=== PATIENT | male | born 1940 | race Caucasian/White ===

== ENCOUNTER 2019-06-13 10:33 | Emergency (ER) | payer MEDICARE, BC ==
[~2019-06-13 10:33] MED LIST: Iopamidol 370 76% 150 ML VIAL FS ONE
[2019-06-13 10:53] LABS: #Basophils 0.1 thou/uL (0.0-0.2); #Eosinphils 0.2 thou/uL (0.0-0.7); #Lymphocytes 2.2 thou/uL (1.20-3.40); #Monocytes 0.6 thou/uL (0.11-0.59); #Neutrophils 4.8 thou/uL (1.40-6.50); %Basophils 0.8 % (0.0-1.0); %Eosinophils 2.1 % (0.0-10.0); %Lymphocytes 28.2 % (21.0-51.0); %Monocytes 7.3 % (0.0-10.0); %Neutrophils 61.7 % (42.0-75.0); Hemoglobin 15.5 g/dL (14.0-18.0); Mean Corpuscular HGB CONC 33.6 g/dL (32.0-36.0); Mean Corpuscular Hemoglobin 30.3 pg (27.0-31.0); Mean Platelet Volume 6.2 fL (7.4-10.4); Platelet Count 405 thou/uL (130-400); RBC Distribution Width 12.9 % (11.5-14.5); Red Blood Cell (RBC) Count 5.13 mill/uL (4.70-6.10); White Blood Cell (WBC) Count 7.8 thou/uL (4.8-10.8)
[2019-06-13 11:02] LABS: ALT (SGPT) 23 U/L (8-55); AST (SGOT) 18 U/L (5-34); Albumin 4.4 g/dL (3.4-4.8); Alkaline Phosphatase 37 U/L (40-110); Anion Gap 13 mmol/L (10-20); BUN (Urea Nitrogen) 27 mg/dL (8.4-25.7); Calc. Creatinine Clearance 0 mL/min (70-130); Calcium 9.7 mg/dL (7.8-10.44); Carbon Dioxide 23 mmol/L (23-31); Chloride 110 mmol/L (98-107); Estimated GFR-MDRD 50; Globulin 2.7 g/dL (2.4-3.5); Glucose 96 mg/dL (83-110); Protein, Total 7.1 g/dL (5.8-8.1); Sodium 142 mmol/L (136-145)
[2019-06-13 11:03] LABS: CKMB 1.7 ng/mL (0-6.6); Troponin I Less than 0.010 ng/mL (< 0.028)
--- NOTE | 2019-06-13 11:16 | CT ---
CT HEAD WITHOUT CONTRAST: Date: 06/13/19 INDICATION: Code stroke. Sudden change in mental status with disorientation. No comparison. FINDINGS: Mild cortical volume loss consistent with age. Mild chronic ischemic change consistent with age. No m ass or hemorrhage. No evidence of edema or infarct. Sinuses and mastoids are clear. IMPRESSION: No acute abnormality. Findings relayed to the emergency room physician at 1050 hours. CODE CR. POS: ADAMARIS
--- NOTE | 2019-06-13 11:25 | CT ---
POSTCONTRAST CT OF BRAIN POSTCONTRAST CT SOFT TISSUE OF NECK: INDICATION: Stroke. COMPARISON: None. FINDINGS: CTA OF THE HEAD WITH AND WITHOUT CONTRAST: POST CONTRAST CT OF BRAIN: No pathologic enhancement of the brain parenchyma. Cortical pena-white matter differentiation is pres erved. White matter hypodensities due to chronic small vessel ischemic changes are identified. POSTCONTRAST SOFT TISSUE NECK: Visualized orbits are unremarkable. Bilateral ocular lenses are appropriately located. Retrobulbar fa t is preserved. Symmetric attenuation of the optic nerves and ocular rectus muscles.. Visualized aerodigestive tract is patent. No obvious mucosal abnormality. Limited evaluation the oral cavity due to dental amalgam artifact. Midline fatty raphae of the tongue is preserved. Epiglottis has a normal caliber. Preepiglottic fat is preserved. Larynx is unremarkable. Symmetric attenuation of the parotid and submandibular glands. Unremarkable thyroid gland. No evidence of lymphadenopathy by size criteria. Paraspinal muscles and sternocleidal mastoid muscles are unremarkable Varying degrees of central canal stenosis and neural foraminal narrowing due to degenerative change. Multilevel spondylolisthesis. Upper mediastinum and lung apices are unremarkable. CT ANGIOGRAM OF THE NECK: The aortic arch demonstrates atherosclerosis. Right carotid: The right carotid artery origin, common carotid artery, carotid bifurcation and manager of international al carotid artery have appropriate enhancement and luminal diameter. There is calcified plaque in the right carotid bifurcation. Left carotid: The left common carotid artery, carotid bifurcation and internal carotid artery have ap propriate enhancement and luminal diameter. Bilateral cervical vertebral arteries are patent throughout the course of their course in the neck an d are essentially codominant. Bilateral subclavian arteries are unremarkable. CTA OF THE BRAIN: Distal cervical and intracranial internal carotid areas of symmetric enhancement and luminal diameter . Atherosclerosis involving both distal cavernous and paraclinoid segments. Anterior circulation: Appropriate enhancement and luminal diameter bilateral A1 and M1 segments. Prox imal A2 segments and proximal MCA branches have appropriate enhancement and luminal diameter. Posterior circulation: Bilateral PICA artery origins are unremarkable. Both vertebral arteries supply a normal appearing basilar artery. Bilateral P1 segments have appropriate enhancement and luminal diameter. IMPRESSION: 1. No evidence of significant stenosis at the level of the [place]. No evidence of vascular occlusion. 2. No significant stenosis of the cervical carotid arteries, based upon NASCET criteria. 3. Results of the study discussed with Dr. Chacon 06/13/2019 at 11:24 AM. Code CR Transcribed Date/Time: 06/13/2019 12:04 PM
[2019-06-13 12:38] LABS: PTT 33.1 SEC (22.9-36.1); Prothrombin Time 13.2 SEC (12.0-14.7)
== END 2019-06-13 11:48 | disposition short-term general hospital (02) ==
LOC: MADERS 10:33
DX: R41.0 Disorientation, unspecified (principal); R29.810 Facial weakness; I10 Essential (primary) hypertension; G43.909 Migraine, unspecified, not intractable, without status migrainosus
CPT/HCPCS: 36416; 70450; 70496; 70498; 80053; 82553; 84484; 85025; 85610; 85730; 93005; 94760

== ENCOUNTER 2022-08-04 13:28 | Emergency (ER) | payer MEDICARE, BC ==
[2022-08-04 14:24] LABS: Bilirubin Small (Negative); Blood, Urine Large (Negative); Glucose, Urine (Dipstick) Negative (Negative); Ketone, Urine Negative (Negative); Leukocyte Negative (Negative); Nitrite Negative (Negative); Protein, Urine (Dipstick) 100 mg/dL (Neg-Trace); Specific Gravity, Urine 1.015 (1.005-1.030); Urobilinogen 0.2 mg/dL (Less than 2)
[2022-08-04 14:28] LABS: Clarity Cloudy (Clear)
[2022-08-04 14:30] LABS: RBC/HPF Greater than 50 HPF (0-3); Squamous Epithelial 0-3 HPF (0-3); WBC/HPF 0-3 HPF (0-3)
[2022-08-04 14:31] LABS: Bacteria/HPF 1+ HPF (None Seen)
[2022-08-04 15:41] LABS: #Basophils 0.1 thou/uL (0.0-0.2); #Eosinphils 0.2 thou/uL (0.0-0.7); #Lymphocytes 2.2 thou/uL (1.20-3.40); #Monocytes 0.6 thou/uL (0.11-0.59); %Basophils 0.7 % (0.0-1.0); %Lymphocytes 24.8 % (21.0-51.0); %Monocytes 6.5 % (0.0-10.0); %Neutrophils 66.1 % (42.0-75.0); Mean Corpuscular HGB CONC 33.5 g/dL (32.0-36.0); Mean Corpuscular Hemoglobin 30.8 pg (27.0-31.0); Platelet Count 452 10x3/uL (130-400); RBC Distribution Width 12.2 % (11.5-14.5); Red Blood Cell (RBC) Count 5.19 mill/uL (4.70-6.10)
[2022-08-04 15:49] LABS: Prothrombin Time 13.7 sec (12.0-14.7)
[2022-08-04 15:59] LABS: ALT (SGPT) 16 U/L (8-55); AST (SGOT) 16 U/L (5-34); Albumin 3.9 g/dL (3.4-4.8); Alkaline Phosphatase 39 U/L (40-110); Anion Gap 13 mmol/L (10-20); BUN (Urea Nitrogen) 19 mg/dL (8.4-25.7); Bilirubin, Total 0.6 mg/dL (0.2-1.2); Calc. Creatinine Clearance 0 mL/min (70-130); Calcium 10.1 mg/dL (7.8-10.44); Carbon Dioxide 26 mmol/L (23-31); Chloride 105 mmol/L (98-107); Estimated GFR 58; Globulin 2.9 g/dL (2.4-3.5); Glucose 103 mg/dL (83-110); Potassium 4.1 mmol/L (3.5-5.1); Protein, Total 6.8 g/dL (5.8-8.1); Sodium 140 mmol/L (136-145)
== END 2022-08-04 18:58 | disposition home or self-care (01) ==
LOC: MADERS 13:28
DX: R31.9 Hematuria, unspecified (principal); N32.9 Bladder disorder, unspecified; E78.5 Hyperlipidemia, unspecified; I10 Essential (primary) hypertension; Z79.82 Long term (current) use of aspirin; Z79.899 Other long term (current) drug therapy
CPT/HCPCS: 74177; 80053; 81003; 81015; 85025; 85610

== ENCOUNTER 2022-08-05 08:03 | Emergency (ER) | payer MEDICARE, BC | END 2022-08-05 08:59 | disposition home or self-care (01) | LOC: MADERS 08:03 | DX: R33.9 Retention of urine, unspecified (principal); R31.9 Hematuria, unspecified; R22.9 Localized swelling, mass and lump, unspecified; I10 Essential (primary) hypertension; Z79.899 Other long term (current) drug therapy | CPT/HCPCS: 51702 ==

== ENCOUNTER 2022-08-05 21:17 | Emergency (ER) | payer MEDICARE, BC | END 2022-08-05 22:02 | disposition home or self-care (01) | LOC: MADERS 21:17 | DX: T83.091A Other mechanical complication of indwelling urethral catheter, initial encounter (principal); R33.9 Retention of urine, unspecified; E78.5 Hyperlipidemia, unspecified; I10 Essential (primary) hypertension | CPT/HCPCS: 99283 ==